=== PATIENT | male | born 1965 | race Caucasian/White ===

== ENCOUNTER → 2017-03-27 | Outpatient (CLI) | payer MEDICARE, BC ==
[2017-03-27 13:00] LABS: ALT 32 U/L (21-72); AST 18 U/L (17-59); Alkaline Phosphatase 74 U/L (38-126); Anion Gap 7 mmol/L; Blood Urea Nitrogen 14 mg/dL (9-20); Calcium 9.5 mg/dL (8.4-10.2); Carbon Dioxide 31 mmol/L (22-30); Chloride 101 mmol/L (98-107); Cholesterol 161 mg/dL (<200); Glucose 108 mg/dL (74-99); HDL Cholesterol 47 mg/dL (40-60); Non-African American GFR(MDRD) >60 (>60 ml/min/1.73 sqM); Potassium 5.1 mmol/L (3.5-5.1); Sodium 139 mmol/L (137-145); Total Bilirubin 0.5 mg/dL (0.2-1.3)
== END | disposition home or self-care (01) ==
LOC: LABWHC1 12:15
PROVIDERS: ATTEND Internal Medicine Interventional Cardiology
DX: E78.2 Mixed hyperlipidemia (principal)
CPT/HCPCS: 36415; 80053; 80061

== ENCOUNTER → 2017-11-21 | Outpatient (CLI) | payer MEDICARE, BC ==
[2017-11-21 10:41] LABS: HCT 39.8 % (39.0-53.0); HGB 13.8 gm/dL (13.0-17.5); MCH 34.6 pg (25.0-35.0); MCHC 34.5 g/dL (31.0-37.0); MCV 100.2 fL (80.0-100.0); Mean Platelet Volume 8.4; RBC 3.98 m/uL (4.30-5.90); RDW 13.8 % (11.5-15.5); WBC 4.2 k/uL (3.8-10.6)
[2017-11-21 11:04] LABS: ALT 29 U/L (21-72); AST 21 U/L (17-59); Albumin 3.9 g/dL (3.5-5.0); Alkaline Phosphatase 76 U/L (38-126); Anion Gap 6 mmol/L; Blood Urea Nitrogen 20 mg/dL (9-20); Calcium 9.1 mg/dL (8.4-10.2); Carbon Dioxide 29 mmol/L (22-30); Chloride 104 mmol/L (98-107); Cholesterol 134 mg/dL (<200); Glucose 107 mg/dL (74-99); HDL Cholesterol 34 mg/dL (40-60); LDL Cholesterol,Calculated 48 mg/dL (0-99); Potassium 4.2 mmol/L (3.5-5.1); Sodium 139 mmol/L (137-145); Total Bilirubin 0.4 mg/dL (0.2-1.3); Total Protein 6.4 g/dL (6.3-8.2); Triglycerides 262 mg/dL (<150)
[2017-11-21 11:21] LABS: Platelet Count 82 k/uL (150-450)
== END | disposition home or self-care (01) ==
LOC: LABWHC1 10:09
PROVIDERS: ATTEND Internal Medicine Interventional Cardiology
DX: E78.2 Mixed hyperlipidemia (principal); I25.10 Atherosclerotic heart disease of native coronary artery without angina pectoris
CPT/HCPCS: 36415; 80053; 80061; 85027

== ENCOUNTER → 2018-05-17 | Outpatient (CLI) | payer MEDICARE, BC ==
--- NOTE | 2018-05-17 21:42 | CONS ---
CONSULTATION DATE OF SERVICE: 05/17/2018 53-year-old gentleman, who has been [facility]evaluated in [facility] for obstructive sleep apnea-hypopnea syndrome. HISTORY OF PRESENT ILLNESS/SLEEP WAKE EVALUATION: Patient had been diagnosed with severe obstructive sleep apnea-hypopnea syndrome in 2008. At that time, apnea-hypopnea index 33.5 with oxygen desaturation to 88%. Since that time, patient is on treatment with CPAP and he is using equipment every night for the whole night. Last time his CPAP unit was changed several months ago. Since that time, patient developed some problems. He has significant leak from his mask and feels that pressure is too high for him. He lost weight from 262 pounds down to 230 pounds today comparing with the weight during his last titration. CPAP pressure on his CPAP unit 10 cm of water. Patient demonstrated 100% compliance with treatment. Apnea- hypopnea index is normal 1.0. Significant leak 18 L/minute. Usage again 100% of the night with average time 7.2 hours. SLEEP SCHEDULE: The patient's usual sleep schedule from 11 to 7:30 a.m. FALLING ASLEEP: No problems with falling asleep, although he has TV set in bedroom. DURING THE DAY/SLEEP WAVE EVALUATION: He may take a nap at noon time. [place] Sleepiness Scale is 7. PAST MEDICAL HISTORY: Positive for epilepsy, allergy, hypertension, coronary artery disease. PAST SURGICAL HISTORY: Stent insertions to coronary artery; surgery for aorta aneurysm, revision of part of aorta, back surgery, brain surgery for epilepsy. FAMILY HISTORY: Hypertension, heart problems, epilepsy, stroke, sleep apnea. REVIEW OF SYSTEMS: Difficulties with the usage of the machine secondary to leak and high pressure. PHYSICAL EXAM: gentleman without distress, BP 135/65, HR 56, RR 16, height 6 feet 1 inch, weight 230 pounds. Body mass index 30, temperature 98.2, oxygen saturation at room air 98%. Oropharynx extremely low position of soft palate. Mallampati IV. Neck is 17 inches in circumference. Neck Supple, no JVD. Thyroid is not palpable. LUNGS Clear to percussion and to auscultation. Good air exchange. No wheezing or rhonchi. HEART: She has a slight systolic murmur on aorta. ABDOMEN: Soft and nontender. Bowel sounds are present. No organomegaly appreciated. EXTREMITIES No clubbing or cyanosis. INTELLECTUAL PROPERTY PARALEGAL Awake, alert, and oriented X3. Cranial nerves 2 to 7 intact. There is no fasciculation or atrophy. noted. No focal deficits observed. IMPRESSION: 1. Obstructive sleep apnea-hypopnea syndrome. Low position of soft palate, wide neck. The patient demonstrated 100% compliance with CPAP treatment, benefitting from treatment. He feels the pressure is too high and there is a high leak from the mask. The patient is using full-face mask. 2. Overweight, borderline obesity, BMI 30. 3. Status post surgical treatment of aortic aneurysm. 4. Coronary artery disease, status post stent insertion. 5. Hypertension. 6. Status post back surgery. 7. History of epilepsy, status post several brain surgeries for epilepsy. PLAN: 1. Patient will continue to use CPAP equipment every night. I will adjust the pressure in the machine to the range of the possibility to use low pressure. 2. We will try to fit patient with a different style of mask. I would recommend DreamWear to try. 3. Sleep hygiene with regular time in bed for at least 8 hours. 4. No driving if feeling sleepiness. Thank you very much for allowing me to participate in management of your patient. Sincerely, Junito Arechiga MD, PhD, FAASM Diplomat of [place] [employer] [place] [employer] Worker of [facility] [place] MMODL / DILIPN: [id number] /
== END | disposition home or self-care (01) ==
LOC: SLEEP 16:30
PROVIDERS: ATTEND Internal Medicine
DX: G47.33 Obstructive sleep apnea (adult) (pediatric) (principal); E66.9 Obesity, unspecified; I25.10 Atherosclerotic heart disease of native coronary artery without angina pectoris; I10 Essential (primary) hypertension; Z86.69 Personal history of other diseases of the nervous system and sense organs; Z83.6 Family history of other diseases of the respiratory system; Z68.30 Body mass index [BMI] 30.0-30.9, adult; Z98.890 Other specified postprocedural states; Z95.5 Presence of coronary angioplasty implant and graft; Z99.89 Dependence on other enabling machines and devices
CPT/HCPCS: 99211

== ENCOUNTER → 2018-07-19 | Outpatient (CLI) | payer MEDICARE, BC ==
--- NOTE | 2018-07-19 20:28 | PN ---
PROGRESS NOTE DATE OF SERVICE: 07/19/2018 53-year-old gentleman who has been followed in [facility] for treatment of obstructive sleep apnea-hypopnea syndrome. During the previous visit, patient complains on too high pressure on in his machine and discomfort in his mask. Subsequently, regimen was changed and today's is his visit for followup, in 2 months after changes have been done. The patient is able to use his CPAP equipment every night, but sometimes feels a discomfort because he preferred to sleep on the side and on the belly and sometimes mask goes slightly off the face. I checked his CPAP unit. Pressure in the range from 4-10 cm of water. Most of the time, pressure is 9.5 cm of water. Usage is 100% of the night 30/30, more than 4 hours. Average 6.9 hours. Leak is high at 52 L/minute, but apnea-hypopnea index only 3.3, which is totally normal range. [place] Sleepiness Scale today is 3, which is normal. MEDICATIONS: Plavix, pantoprazole, Zyrtec, niacin, vitamin D3, aspirin and Aleve, Zanaflex, Tylenol, Lamictal, Tegretol XR, Zoloft, metoprolol, losartan, hydrochlorothiazide, Lipitor. PHYSICAL EXAM: Patient in no distress. BP 126/67, HR 78, RR 16, height 6 feet 1 inch, weight 228 pounds. Body mass index 30, temperature 98.3, oxygen saturation at room air 97%. Oropharynx showed tongue protrudes midline. Extremely low position of soft palate. Mallampati IV. Neck is 17 inches in circumference, slight systolic murmur on aorta. Neck: Supple, no JVD. Thyroid is not palpable. LUNGS: Clear to percussion and to auscultation. Good air exchange. No wheezing or rhonchi. HEART S1, S2 regular. No gallops, or rubs. Slight systolic murmur on aorta. ABDOMEN Soft and nontender. Bowel sounds are present. No organomegaly appreciated. EXTREMITIES No clubbing or cyanosis. DRUG SAFETY SPECIALIST Awake, alert, and oriented X3. Cranial nerves 2 to 7 intact. There is no fasciculation or atrophy. noted. No focal deficits observed. IMPRESSION: 1. Obstructive sleep apnea-hypopnea syndrome. The patient demonstrated 100% compliance with treatment. Normal apnea-hypopnea index on the machine, but still high leak from the mask, benefitting from treatment. 2. History of aortic aneurysm, status post surgical treatment. 3. Coronary artery disease, status post stent insertion. 4. Hypertension. 5. Status post leg surgery. 6. History of epilepsy. Status post several brain surgeries for epilepsy. PLAN: 1. I believe the patient may have benefits from fitting with DreamWear full-face under the nose mask. 2. The patient will continue to use CPAP equipment every night for the whole night. 3. Watching weight. 4. Sleep hygiene with regular time in bed for at least 8 hours. 5. No driving if feeling sleepiness. Thank you very much for allowing me to participate in management of your patient. Junito Arechiga MD, PhD, FAASM Diplomat of [employer] [employer] [employer] [facility] [place]LEY / ASH: [id number] /
== END ==
LOC: SLEEP 16:46
PROVIDERS: ATTEND Internal Medicine
DX: G47.33 Obstructive sleep apnea (adult) (pediatric) (principal); I10 Essential (primary) hypertension; I25.10 Atherosclerotic heart disease of native coronary artery without angina pectoris; G40.909 Epilepsy, unspecified, not intractable, without status epilepticus; Z99.89 Dependence on other enabling machines and devices; Z86.79 Personal history of other diseases of the circulatory system; Z98.890 Other specified postprocedural states; Z95.5 Presence of coronary angioplasty implant and graft; Z79.02 Long term (current) use of antithrombotics/antiplatelets; Z79.1 Long term (current) use of non-steroidal anti-inflammatories (NSAID); Z79.899 Other long term (current) drug therapy

== ENCOUNTER → 2019-02-28 | Outpatient (CLI) | payer MEDICARE, BC ==
[2019-02-28 20:57] LABS: Chol/HDL Ratio 3.16; LDL Cholesterol,Calculated 68.6 mg/dL (0.0-131.0); VLDL Calculation 28.4 mg/dL (5.00-40.00)
== END | disposition home or self-care (01) ==
LOC: LABWHC1 11:16
PROVIDERS: ATTEND Internal Medicine Interventional Cardiology
DX: E78.2 Mixed hyperlipidemia (principal)
CPT/HCPCS: 36415; 80061; 84450; 84460

== ENCOUNTER → 2019-12-05 | Outpatient (CLI) | payer MEDICARE ==
[2019-12-05 14:56] LABS: ALT 16 U/L (4-49); AST 21 U/L (17-59); African American GFR (CKD) >90 (>60 ml/min/1.73 sqM); Albumin 4.2 g/dL (3.5-5.0); Alkaline Phosphatase 74 U/L (38-126); Anion Gap 6 mmol/L; Blood Urea Nitrogen 17 mg/dL (9-20); Calcium 9.3 mg/dL (8.4-10.2); Carbon Dioxide 30 mmol/L (22-30); Chloride 98 mmol/L (98-107); Cholesterol 165 mg/dL (<200); Glucose 90 mg/dL (74-99); HDL Cholesterol 38 mg/dL (40-60); LDL Cholesterol,Calculated 76 mg/dL (0-99); Non-African American GFR(CKD) >90 (>60 ml/min/1.73 sqM); Potassium 4.6 mmol/L (3.5-5.1); Sodium 134 mmol/L (137-145); Total Bilirubin 0.5 mg/dL (0.2-1.3); Total Protein 6.8 g/dL (6.3-8.2); Triglycerides 253 mg/dL (<150)
--- NOTE | 2019-12-05 15:33 | BD ---
EXAMINATION TYPE: Axial Bone Density DATE OF EXAM: 12/05/2019 COMPARISON: NONE CLINICAL HISTORY: 54-year-old male other long-term/current drug therapy Height: 6 FT Weight: 230 FRAX RISK QUESTIONS: Alcohol (3 or more units per day): NO Family History (Parent hip fracture): NO Glucocorticoids (More than 3mos): NO (Ex: prednisone, prednisolone, methylprednisolone, dexamethasone, and hydrocortisone). History of Fracture in Adulthood: NO Secondary Osteoporosis: 1. Type 1 Diabetes: NO 2. Hyperthyroidism: NO 3. Menopause before 45: NA 4. Malnutrition: NO 5. Chronic liver disease: NO Rheumatoid Arthritis: NO Current Tobacco Use: YES RISK FACTORS HISTORY OF: Surgery to Spine/Hip(right/left)/Wrist (right/left): LUMBAR SURG When: ROUGHLY 15 YEARS AGO Family History of Osteoporosis: NO Active: YES Postmenopausal woman: NA Lost more than 2 inches in height since high school: YES MEDICATIONS: Additional Medications: TEGRETOL, CYCLOBENZAPRINE, LAMOTRIGINE, METOPROLOL, HYDROCHLORATE, LOSARTAN, PANTOPRAZOLE, LIPITOR, SERTRALINE, CALCIUM VIT D3 Additional History: EPILEPSY EXAM MEASUREMENTS: Bone mineral density about the R hip (g/cm2): 0.875 Bone mineral density about the L hip (g/cm2): 0.882 T Score values are as follows: -----R Neck: -1.2 -----L Neck: -1.1 -----R Total: -0.1 -----L Total: -0.4 BASELINE Bone mineral density about the L Wrist (g/cm2): 0.682 T Score values are as follows: -----Dist. R+U: -0.9 -----Prox. R+U: -1.0 -----Radius total: -1.0 BASELINE. IMPRESSION: Osteopenia (T Score between -2.5 and -1). There is slightly increased risk of fracture and the patient may be considered for treatment. Re-Screen 2-5 years. NOTE: T-SCORE=SD OF THE YOUNG ADULT MEAN.
== END | disposition home or self-care (01) ==
LOC: RADBDWWP 13:08
PROVIDERS: ATTEND Family Medicine
DX: Z13.820 Encounter for screening for osteoporosis (principal); M85.80 Other specified disorders of bone density and structure, unspecified site; Z79.899 Other long term (current) drug therapy; E78.2 Mixed hyperlipidemia
CPT/HCPCS: 77080; 80053; 80061

== ENCOUNTER 2020-06-18 07:12 | Day surgery (SDC) | payer MEDICARE ==
[2020-06-16 11:51] VITALS: BMI 30.8
[~2020-06-18 07:12] MED LIST: LIDOCAINE 1% (10MG/ML) FOR IV START INTRADERMA PRN
[2020-06-18 08:07] VITALS: RESP 16; TEMP 97
[2020-06-18] MEDS: LACTATED RINGERS 1,000 ML IV SCH ×2 (08:16→08:33)
[2020-06-18] MEDS ORDERED: PROPOFOL 10 MG/ML 20 ML VIAL IV ONE (08:33)
[2020-06-18] MEDS ORDERED: LIDOCAINE 1% INJ 10MG/ML (20 ML MDV) ONE (08:33)
--- NOTE | 2020-06-18 09:07 | P.PCN ---
Date of Procedure: 06/18/20 Description of Procedure: BRIEF HISTORY: Patient is a 55-year-old male presenting for outpatient colonoscopy for significant for malignant neoplasm of the colon. No prior colonoscopy. No change in bowel habits. His report colon cancer in his mother. PROCEDURE PERFORMED: Colonoscopy with polypectomy. PREOPERATIVE DIAGNOSIS: Screening for malignant neoplasm of the colon, no prior colonoscopies, family history of colon cancer in the patient's mother. ESTIMATED BLOOD LOSS: Minimal. IV sedation per Anesthesia. PROCEDURE: After informed consent was obtained, the patient, was brought into the endoscopy unit. IV sedation was administered by Anesthesia under continuous monitoring. Digital rectal examination was normal. Initially the Olympus CF-190 flexible video colonoscope was then inserted in the rectum, gradually advanced into the cecum without any difficulty. Careful examination was performed as the scope was gradually being withdrawn. Ileocecal valve and the appendiceal orifice were visualized and appeared normal. Prep was excellent. Mucosa of the cecum, ascending colon, transverse colon, descending colon, sigmoid colon, and rectum appeared normal. Cold snare polypectomy of polyps measuring 4 mm in the cecum, 4 mm in the ascending colon and 3 mm in the descending colon. Cold forcep biopsy of diminutive polyps measuring 1-2 mm in the transverse colon 2 in the rectum 1. Retroflexion was performed in the rectum and no lesions were seen. The patient tolerated the procedure well. IMPRESSION: Cold snare polypectomy of polyps from the cecum, ascending colon and descending colon. 3 diminutive polyps removed with cold forcep polypectomy from the transverse col on 2 and rectum. RECOMMENDATIONS: Findings of this examination were discussed with the patient and his family. Okay to resume diet. Okay to resume medications. Await pathology from polypectomy. Recommend repeat colonoscopy in 3 years for history of colon polyps and family history of colon cancer.
[2020-06-18 09:28] VITALS: BP 133/70; PULSE 55
== END 2020-06-18 09:40 ==
LOC: ORWHC2ENDO 07:12
PROVIDERS: ATTEND Internal Medicine
DX: Z12.11 Encounter for screening for malignant neoplasm of colon (principal); D12.0 Benign neoplasm of cecum; D12.2 Benign neoplasm of ascending colon; D12.3 Benign neoplasm of transverse colon; D12.4 Benign neoplasm of descending colon; D12.8 Benign neoplasm of rectum; Z80.0 Family history of malignant neoplasm of digestive organs; I25.10 Atherosclerotic heart disease of native coronary artery without angina pectoris; E78.5 Hyperlipidemia, unspecified; G47.33 Obstructive sleep apnea (adult) (pediatric); K21.9 Gastro-esophageal reflux disease without esophagitis; F17.210 Nicotine dependence, cigarettes, uncomplicated; Z79.899 Other long term (current) drug therapy; Z95.5 Presence of coronary angioplasty implant and graft
CPT/HCPCS: 88305; 45380; 45385; J2001; J2704

== ENCOUNTER → 2022-01-27 | Outpatient (CLI) | payer MEDICARE ==
[2022-01-27 14:29] LABS: HCT 45.2 % (39.6-50.0); HGB 15.5 g/dL (13.0-17.0); MCHC 34.3 g/dL (32.0-37.0); MCV 99.1 fL (80.0-97.0); Mean Platelet Volume 11.2 fL (9.5-12.2); NRBC Per 100 WBC 0 /100 WBCS (0.0-0.0); Platelet Count 100 X 10*3/uL (140-440); RBC 4.56 X 10*6/uL (4.40-5.60); RDW 14.3 % (11.5-14.5); WBC 3.95 X 10*3/uL (4.50-10.00)
[2022-01-27 17:17] LABS: ALT 12 U/L (10-49); AST 16 U/L (14-35); African American GFR (CKD) 95.7 (60.0-200.0); Albumin 4.4 g/dL (3.8-4.9); Albumin/Globulin Ratio 1.47 (1.60-3.17); Alkaline Phosphatase 83 U/L (41-126); Blood Urea Nitrogen 11.7 mg/dL (9.0-27.0); Calcium 9.8 mg/dL (8.7-10.3); Carbon Dioxide 27.7 mmol/L (20.0-27.5); Chloride 93 mmol/L (96-109); Chol/HDL Ratio 3.28 Ratio; Glucose 110 mg/dL (70-110); LDL Cholesterol,Calculated 71.8 mg/dL (0.0-131.0); Non-African American GFR(CKD) 82.6 (60.0-200.0); Sodium 131 mmol/L (135-145); Total Protein 7.4 g/dL (6.2-8.2)
== END | disposition home or self-care (01) ==
LOC: LABWHC1 09:01
PROVIDERS: ATTEND Internal Medicine Interventional Cardiology
DX: I10 Essential (primary) hypertension (principal); E78.2 Mixed hyperlipidemia; I48.91 Unspecified atrial fibrillation
CPT/HCPCS: 36415; 80053; 80061; 84443; 85027

== ENCOUNTER 2022-03-29 05:52 | Day surgery (SDC) | payer MEDICARE ==
[2022-03-24 15:46] VITALS: BMI 31.6
[~2022-03-29 05:52] MED LIST changes: -LIDOCAINE 1% (10MG/ML) FOR IV START INTRADERMA PRN; +SODIUM CHLORIDE 0.9% 1,000 ML IV SCH
[2022-03-29] MEDS ORDERED: SODIUM CHLORIDE 0.9% 500 ML 500 ML IV ONE (06:10)
[2022-03-29 06:37] VITALS: RESP 16; TEMP 98.5
[2022-03-29] MEDS ORDERED: PROPOFOL 10 MG/ML 20 ML VIAL IV ONE (07:15)
[2022-03-29] MEDS ORDERED: LIDOCAINE 2% INJ 20 MG/ML (2 ML VIAL) ONE (07:15)
[2022-03-29 07:18] LABS: African American GFR (CKD) >90 (>60 ml/min/1.73 sqM); Anion Gap 4 mmol/L; Blood Urea Nitrogen 17 mg/dL (9-20); Calcium 8.8 mg/dL (8.4-10.2); Carbon Dioxide 31 mmol/L (22-30); Chloride 103 mmol/L (98-107); Glucose 111 mg/dL (74-99); Non-African American GFR(CKD) >90 (>60 ml/min/1.73 sqM); Potassium 4.3 mmol/L (3.5-5.1); Sodium 138 mmol/L (137-145)
[2022-03-29] MEDS ORDERED: BENZOCAINE SPRAY 1 CAN TOPICAL ONE ×2 (07:19→07:26)
[2022-03-29] MEDS ORDERED: CYCLOBENZAPRINE 5 MG TAB PO PRN (07:40)
[2022-03-29] MEDS ORDERED: SODIUM CHLORIDE 0.9% 1,000 ML IV SCH (07:45)
--- NOTE | 2022-03-29 07:45 | P.PCN ---
Date of Procedure: 03/29/22 Description of Procedure: Indication: Atrial fibrillation Procedure Description: After explaining the procedure to the patient, it's risk and complications, blood pressure, heart rate and O2 saturation were monitored. The throat was sprayed with Cetacaine. Patient received sedation per anesthesia department. The probe was introduced into the esophagus without difficulty. Images were obtained. Following that, the probe was removed. There was no immediate complication. Findings: Left atrial size is mildly dilated, left atrial appendage is normal. The aortic valve is a bicuspid valve with preserved opening. Mitral valve appears to be normal. The ventricle systolic function is borderline normal with ejection fraction of 50-55%. Tricuspid valve is normal. Descending thoracic aorta revealed atherosclerotic changes of mild to moderate degree. No pericardial effusion. Contrast bubble study with no shunting across the intra-atrial septum. Doppler: Pulse wave and color Doppler were obtained, obtained and showed mild mitral and tricuspid regurgitation is moderate to severe aortic regurgitation. There was no shunting across the intra-atrial septum. Conclusion: 1. Mildly dilated left atrium with normal appearance of the left atrial appendage 2. Left ventricle systolic function borderline normal 3. Bicuspid aortic valve with moderate to severe aortic regurgitation 4. Mild mitral and tricuspid regurgitation 5. Mild atherosclerotic changes of the descending thoracic aorta 6. No pericardial effusion Cardioversion: After performing a MARCELLE and obtaining sedated state synchronized biphasic cardioversion using 150 J was unsuccessful in restoring sinus mechanism, an attempt with 200 J was successful in restoring sinus mechanism. There was no immediate complications.
[2022-03-29] MEDS ORDERED: lamoTRIgine 100 MG TAB PO SCH (09:00)
[2022-03-29] MEDS ORDERED: RIVAROXABAN 20 MG TAB PO SCH (09:00)
[2022-03-29] MEDS ORDERED: carBAMazepine 400 MG TAB.ER.12H PO SCH (09:00)
[2022-03-29] MEDS ORDERED: NON FORMULARY DRUG (Calcium Carbonate [Calcium] 600 MG Tablet) PO SCH (09:00)
[2022-03-29 09:15] VITALS: BP 128/72; PULSE 56
[2022-03-29] MEDS ORDERED: METOPROLOL TARTRATE 50 MG TAB PO SCH (21:00)
[2022-03-29] MEDS ORDERED: SERTRALINE 50 MG TAB PO SCH (21:00)
[2022-03-30] MEDS ORDERED: PANTOPRAZOLE 40 MG TABLET PO SCH (07:30)
[2022-03-30] MEDS ORDERED: NIACIN TR 500 MG CAPLET PO SCH (09:00)
[2022-03-30] MEDS ORDERED: LOSARTAN 50 MG TAB PO SCH (09:00)
[2022-03-30] MEDS ORDERED: ASPIRIN 81 MG PO SCH (09:00)
[2022-03-30] MEDS ORDERED: hydroCHLOROthiazide 12.5 MG CAP PO SCH (09:00)
== END 2022-03-29 09:17 | disposition home or self-care (01) ==
LOC: CATHCVL 05:52
PROVIDERS: ATTEND Internal Medicine Interventional Cardiology
DX: I48.91 Unspecified atrial fibrillation (principal); I08.3 Combined rheumatic disorders of mitral, aortic and tricuspid valves; I70.90 Unspecified atherosclerosis; I25.10 Atherosclerotic heart disease of native coronary artery without angina pectoris; I10 Essential (primary) hypertension; E78.5 Hyperlipidemia, unspecified; F17.210 Nicotine dependence, cigarettes, uncomplicated; I73.9 Peripheral vascular disease, unspecified; Z79.82 Long term (current) use of aspirin; Z79.899 Other long term (current) drug therapy
CPT/HCPCS: 93312; 93320; 93325; 92960; 80048; J2704; J2001

== ENCOUNTER → 2022-07-07 | Outpatient (CLI) | payer MEDICARE ==
[2022-07-08 00:09] LABS: African American GFR (CKD) 113.3 (60.0-200.0); Anion Gap 9.5 mmol/L (10.00-18.00); Blood Urea Nitrogen 13.8 mg/dL (9.0-27.0); Carbon Dioxide 29.5 mmol/L (20.0-27.5); Non-African American GFR(CKD) 97.8 (60.0-200.0); Potassium 4.5 mmol/L (3.5-5.5)
[2022-07-08 02:42] LABS: HCT 44.9 % (39.6-50.0); HGB 15.2 g/dL (13.0-17.0); MCH 33.9 pg (27.0-32.0); MCHC 33.9 g/dL (32.0-37.0); MCV 100.2 fL (80.0-97.0); NRBC Per 100 WBC 0 /100 WBCS (0.0-0.0); Platelet Count 94 X 10*3/uL (140-440); RBC 4.48 X 10*6/uL (4.40-5.60); RDW 13.7 % (11.5-14.5); WBC 4.91 X 10*3/uL (4.50-10.00)
[2022-07-08 02:43] LABS: Macrocytosis (M) 2+
== END | disposition home or self-care (01) ==
LOC: LABPAT 16:15
PROVIDERS: ATTEND Internal Medicine Clinical Cardiac Electrophysiology
DX: Z01.812 Encounter for preprocedural laboratory examination (principal); I48.0 Paroxysmal atrial fibrillation
CPT/HCPCS: 80051; 82565; 84520; 85027

== ENCOUNTER 2022-07-11 12:01 | Day surgery (SDC) | payer MEDICARE ==
[~2022-07-11 12:01] MED LIST changes: +HYDROmorphone 0.5 MG/0.5 ML SYRINGE IVP PRN; +MIDAZOLAM 2 MG/2 ML VIAL IV PRN; +ONDANSETRON 4 MG/2 ML VIAL IVP ONE; -SODIUM CHLORIDE 0.9% 1,000 ML IV SCH
[2022-07-11] MEDS ORDERED: SODIUM CHLORIDE 0.9% 1,000 ML IV ONE ×2 (12:12→16:08)
[2022-07-11] MEDS ORDERED: LIDOCAINE 1% INJ 10MG/ML (20 ML MDV) ONE (13:01)
[2022-07-11] MEDS ORDERED: LIDOCAINE 2% INJ 20 MG/ML (2 ML VIAL) ONE (13:53)
[2022-07-11] MEDS ORDERED: ePHEDrine 50 MG/ML 1 ML VIAL ONE (13:53)
[2022-07-11] MEDS ORDERED: ROCURONIUM 10 MG/ML (5 ML VIAL) IV ONE (13:53)
[2022-07-11] MEDS ORDERED: PROPOFOL 10 MG/ML 20 ML VIAL IV ONE (13:53)
[2022-07-11] MEDS ORDERED: fentaNYL (PF) 50 MCG/ML 2 ML AMP ONE (13:53)
[2022-07-11] MEDS ORDERED: ATROPINE SULFATE 0.1 MG/ML 10ML SYRINGE ONE (13:53)
[2022-07-11] MEDS ORDERED: HEPARIN SODIUM,PORCINE 5,000 UNIT/ML 1 ML VIAL ONE (13:53)
[2022-07-11] MEDS ORDERED: HEPARIN SODIUM,PORCINE 10,000 UNIT/ML 1 ML VIAL ONE (13:53)
[2022-07-11] MEDS ORDERED: SUCCINYLCHOLINE CHLORIDE 200 MG/10 ML VIAL IV ONE (13:53)
[2022-07-11] MEDS ORDERED: MIDAZOLAM 2 MG/2 ML VIAL ONE (13:53)
[2022-07-11] MEDS ORDERED: HEPARIN SODIUM (1,000 UNIT/ML) 1,000 UNIT in SODIUM CHLORIDE 0.9% 1,000 ML IRRIGATION ONE (14:11)
--- NOTE | 2022-07-11 14:25 | P.HPCAR ---
History of Present Illness This is Dr. Rae dictating an H/P on this patient The patient was interviewed and examined IMPRESSION / ASSESSMENT: Persistent atrial fibrillation, symptomatic with tiredness fatigue, rate controlled Bicuspid aortic valve Ascending aortic aneurysm Multivessel coronary artery disease status post stenting 3+ aortic regurgitation Ejection fraction 50% Hypertension History of seizure disorder PLAN: Proceed with AF ablation with PVI and linear ablation for left atrium HPI Patient is complaining of palpitations and tiredness fatigue Denies any fever chills cough expectoration Denies any undue shortness of breath No angina no chest pain No syncope recently ROS: No fever chills or rigors, no cough, phlegm or expectoration, no nausea, vomiting or diarrhea, no hematuria, dysuria, no musculoskeletal complaints, no strokes or seizures, no skin lesions. EXAMINATION: 147 70 mmHg, pulse rate in the 80s Breath sounds are clear no rhonchi no crackles Heart sounds irregular no murmurs Abdomen soft No lower extremity edema No orthopnea No JVD REVIEW OF LABS, ECG & MEDICAL DATA Metoprolol 50 mg twice daily, hydrochlorothiazide, Xarelto 20 mg daily, losartan and aspirin 81 mg daily Physical Exam Vitals: Vital Signs Temp Pulse Resp BP Pulse Ox 07/11/22 12:33 98 F 85 16 147/70 95 Intake and Output 07/10/22 07/11/22 07/11/22 22:59 06:59 14:59 Intake Total 100 Balance 100 Intake: IV 100 Other: Weight 110.9 kg Past Medical History Past Medical History: Atrial Fibrillation, Coronary Artery Disease (CAD), GERD/Reflux, Hypertension, Musculoskeletal Disorder, Seizure Disorder, Sleep Apnea/CPAP/BIPAP Additional Past Medical History / Comment(s): epilespy-last seizure 10 yrs ago, aortic valve disease, heart murmur, uses cpap, see Dr. Rae H & P History of Any Multi-Drug Resistant Organisms: None Reported Past Surgical History: Appendectomy, Back Surgery, Heart Catheterization With Stent, Orthopedic Surgery Additional Past Surgical History / Comment(s): total 3 cardiac stents, brain surgery x 2 for seizures, aortic aneursym repair, rt knee arthroscopy, 2nd rt knee open surgery with 2 screws, mult fingers surgery for trigger finger, rt wrist surgery for torn tendon. back surgery x 2 Past Anesthesia/Blood Transfusion Reactions: No Reported Reaction Date of Last Stent Placement:: 03/22/16 Smoking Status: Current every day smoker - Past Family History Mother Family Medical History: Cancer Additional Family Medical History / Comment(s): Mother had colon cancer. Father Family Medical History: CVA/TIA, Hypertension Sister(s) Family Medical History: Cancer Physical Examination Vital Signs Temp Pulse Resp BP Pulse Ox 07/11/22 12:33 98 F 85 16 147/70 95 Intake and Output 07/10/22 07/11/22 07/11/22 22:59 06:59 14:59 Intake Total 100 Balance 100 Intake: IV 100 Other: Weight 110.9 kg Results Current Medications Generic Name Dose Route Start Last Admin Trade Name Freq PRN Reason Stop Dose Admin Hydromorphone HCl 0.5 mg 07/11/22 07:00 Hydromorphone 0.5 Mg/0.5 Ml Syringe IVP 07/11/22 23:00 Q5M PRN Phase 1 or 2 - Pain Control Sodium Chloride 1,000 mls @ 20 mls/hr 07/11/22 06:08 Saline 0.9% IV 08/10/22 06:09 .Q24H SINCERE Lactated Ringer's 1,000 mls @ 20 mls/hr 07/11/22 06:08 Lactated Ringers IV 08/10/22 06:09 .Q24H SINCERE Midazolam HCl 2 mg 07/11/22 06:08 Midazolam 2 Mg/2 Ml Vial IV 07/12/22 06:09 ONCE PRN Pre-Op Anxiety Intake and Output 07/10/22 07/11/22 07/11/22 22:59 06:59 14:59 Intake Total 100 Balance 100 Intake: IV 100 Other: Weight 110.9 kg Patient Weight 07/12/22 06:59 Weight 110.9 kg
[2022-07-11] MEDS ORDERED: LIDOCAINE 1% INJ 10MG/ML (20 ML MDV) SQ ONE (14:40)
[2022-07-11] MEDS ORDERED: HEPARIN SOD,PORK IN 0.45% NACL 25,000 UNIT in 0.45% NACL 1 250ML.BAG IV ONE (16:41)
[2022-07-11] MEDS ORDERED: IOPAMIDOL-370 100ML BTL INJ ONE (16:45)
--- NOTE | 2022-07-11 17:40 | P.EPPROC ---
- EP Procedure Note Electrophysiology Procedure Note: PROCEDURE A. fib ablation DIAGNOSIS Atrial fibrillation, symptomatic, refractory to therapy. Symptomatic despite adequate rate control of ventricular response RESULT No left atrial appendage mass seen on intracardiac echo, mild thickening of the pericardium, status post coronary artery bypass grafting Successful A. fib ablation/pulmonary vein isolation of all veins using cryo- ablation Complete entrance block in all 4 veins confirmed Ablation of the dahlia in between the left superior and left inferior pulmonary veins, successful Ablation of the long left atrial roof in between the superior veins, successful No evidence for phrenic nerve injury Esophageal deflection YES Electrical cardioversion with a synchronized shock across the chest YES PROCEDURE DETAILS Written informed consent prior to procedure. Patient brought to the EP lab. General anesthesia given. Heparin administered. A city maintained above 300 seconds Both groins prepped and draped per protocol and venous sheaths placed. Esophagus intubated, circa catheter for temperature monitoring an endoscope for possible esophageal deflection. Phrenic nerve monitoring performed. Esophageal temperature monitoring performed. Esophageal deflection performed if circa catheter overlapping with the balloon or circa temperature less than 27.5C Intracardiac echocardiography performed. Pericardium evaluated. Left atrial appendage evaluated. Left atrium evaluated along with pulmonary veins Transseptal catheterization performed under fluoroscopic guidance and intracardiac echo guidance Cryoablation sheath exchanged, balloon catheter along with achieve catheter placed in the left atrium. Pulmonary veins isolated in the following sequence: Left superior pulmonary vein followed by left inferior pulmonary vein, followed by right inferior pulmonary vein and lastly right superior pulmonary vein. Phrenic nerve stimulation along with capture thresholds within the SVC and right superior pulmonary vein to identify the phrenic nerve proximity to the cryo- balloon. Pulmonary veins isolated and confirmed with entrance and exit block. Phrenic nerve integrity confirmed at the end of the procedure Linear Ablation of the left atrial roof performed with sequential lesions from the left superior to the right superior pulmonary veins. Ablation of the electrograms confirmed Ablation of the left atrial septum performed with cannulation of the superior branch of the right inferior to achieve ablation of the broad dahlia between LS and LIPV Ablation of electrograms confirmed Electrical cardioversion performed for persistence of atrial fibrillation despite successful ablation. Diagnostic catheters for the high right atrium, His bundle, coronary sinus placed. LA and RA pressures recorded RA pressure: 20/14/17 LA pressure: 29/7/17 Diagnostic EP study with coronary sinus pacing and recording Baseline measurements: Patient was in A. fib and started study. He underwent electrical cardioversion for performance of EP study QRS 160 ms, QT interval 464 ms AH 106 ms and HV interval 43 ms Sinus node recovery times at 600, 500, and 400 ms were 1015, 1003 and 1000 ms respectively Dinora response to Parahisian pacing No evidence for slow pathway conduction VA Wenckebach block 450 ms AV node Wenckebach block 420 ms Venous sheaths were removed and hemostasis assured with a closure device. Patient extubated and transferred to recovery Increase procedural time During ablation multiple attempts had to be made to move the esophagus a safe distance of the from the pulmonary vein and from the left atrial roof during cryoablation, to avoid excessive thermal cooling of the esophagus This took extra time and effort to keep the esophagus a safe distance away from the cryoablation balloon. PROCEDURES PERFORMED Diagnostic EP study CS pacing and recording Left and right transseptal catheterization Catheter the mapping of the tachycardia Intracardiac echocardiography Pulmonary vein isolation with transseptal and comprehensive EPS, [id number] Extended procedure duration Left atrial roof line, +[id number] Linear ablation, left atrium, +[id number] Electrical cardioversion with a synchronized shock across the chest [id number]
--- NOTE | 2022-07-11 17:41 | P.PRLE ---
RE: Parker Roque Dear Shanna Roque underwent an A. fib ablation for symptomatic persistent atrial fibrillation He underwent successful isolation of the pulmonary veins, the atrial tissue between the left superior and left inferior pulmonary veins and the left atrial roof line successfully However he did have to be cardioverted the end of the procedure He will continue anticoagulation as before and will follow up with you and Dr. Burkett Thank you for entrusting me with the care of the patient Warm regards Sincerely Prosper Rae
[2022-07-11] MEDS ORDERED: CYCLOBENZAPRINE 5 MG TAB PO PRN (17:42)
[2022-07-11] MEDS ORDERED: ACETAMINOPHEN TAB 325 MG TAB PO PRN (17:44)
[2022-07-11] MEDS ORDERED: ACETAMINOPHEN IV (For NPO) 1,000 MG in EMPTY BAG 1 BAG IVPB ONE (17:44)
[2022-07-11] MEDS: LACTATED RINGERS 1,000 ML IV SCH (18:25)
[2022-07-11] MEDS: SODIUM CHLORIDE 0.9% 1,000 ML IV SCH (18:25)
[2022-07-11] MEDS: CARBAMAZEPINE PO SCH (20:58)
[2022-07-11] MEDS: [UNRECOGNIZED DRUG - OTHER] PO SCH (20:58)
[2022-07-11] MEDS: lamoTRIgine 100 MG TAB PO SCH (20:58)
[2022-07-11 22:09] VITALS: RESP 18
[2022-07-12] MEDS: SODIUM CHLORIDE 0.9% 1,000 ML IV SCH (05:50)
[2022-07-12] MEDS: LACTATED RINGERS 1,000 ML IV SCH (05:50)
[2022-07-12 07:24] VITALS: BP 134/75; PULSE 65; TEMP 98
[2022-07-12] MEDS ORDERED: PANTOPRAZOLE 40 MG TABLET PO SCH (07:30)
--- NOTE | 2022-07-12 07:59 | DS ---
DISCHARGE SUMMARY HOSPITAL COURSE: Mr. Roque has persistent symptomatic atrial fibrillation despite adequate rate control. Yesterday, he underwent an atrial fibrillation ablation successfully. He is doing well this morning. He has no chest discomfort, dizziness, lightheadedness. No pleuritic pain. No sore throat. Mild soreness in the right groin, but there is no hematoma. His groins are bruised, but without any hematoma at all. Heart sounds are normal. Normal S1, normal S2. Soft, diastolic murmur. Lungs are clear. No rhonchi, no crackles. Breath sounds are normal. No JVD. He is able to lie supine. He has been ambulating around in the room and to the bathroom. Vitals are stable. Heart rates are in the 60s and 70s, sinus mechanism. First-degree AV block. A 12-lead EKG shows a first-degree AV block with heart rate around 65 beats per minute. IMPRESSION: 1. Persistent atrial fibrillation, symptomatic despite adequate rate control. 2. Successful pulmonary vein isolation, ablation of atrial tissue between the left superior and left inferior pulmonary veins and ablation of the left atrial roof with ablation of all electrograms. A very thick interatrial septum with an extremely small foci ovalis that was difficult to cross. However, the sheath was placed successfully, crossed into the left atrium and successful ablation was performed. The patient did require electrical cardioversion at the end of the procedure. Hypertension. Coronary artery disease, status post coronary artery bypass grafting. Moderate to severe eccentric aortic regurgitation. Suggest ambulate in the hallways today and discharge home by late morning if hemodynamically stable. Continue Xarelto. Reduce the dose of metoprolol to 25 mg twice daily. Continue all other medications. Follow up with Dr. Morris in 7 to 10 days. Postop instructions were given to the patient. Ultimately, the prognosis for atrial fibrillation depending upon extent and progression of coronary artery disease as well as progression of aortic regurgitation. MMODL / IJN: [id number] /
[2022-07-12] MEDS ORDERED: ASPIRIN 81 MG PO SCH (09:00)
[2022-07-12] MEDS ORDERED: hydroCHLOROthiazide 25 MG TAB PO SCH (09:00)
[2022-07-12] MEDS ORDERED: RIVAROXABAN 20 MG TAB PO SCH (09:00)
[2022-07-12] MEDS ORDERED: LOSARTAN 50 MG TAB PO SCH (09:00)
[2022-07-12] MEDS: CARBAMAZEPINE PO SCH (09:05)
[2022-07-12] MEDS: [UNRECOGNIZED DRUG - OTHER] PO SCH (09:05)
[2022-07-12] MEDS: lamoTRIgine 100 MG TAB PO SCH (09:05)
== END 2022-07-12 11:11 | disposition home or self-care (01) ==
LOC: CATHEP 12:01 → 6NMEDSUR 17:05 → CATHEP 07-12 11:11
PROVIDERS: ATTEND Internal Medicine Clinical Cardiac Electrophysiology
DX: I48.19 Other persistent atrial fibrillation (principal); I25.10 Atherosclerotic heart disease of native coronary artery without angina pectoris; Z95.1 Presence of aortocoronary bypass graft; Z95.5 Presence of coronary angioplasty implant and graft; I44.1 Atrioventricular block, second degree; I71.21 Aneurysm of the ascending aorta, without rupture; I10 Essential (primary) hypertension; I35.1 Nonrheumatic aortic (valve) insufficiency; Z79.01 Long term (current) use of anticoagulants; K21.9 Gastro-esophageal reflux disease without esophagitis; G40.909 Epilepsy, unspecified, not intractable, without status epilepticus; G47.30 Sleep apnea, unspecified; Z99.89 Dependence on other enabling machines and devices; F17.200 Nicotine dependence, unspecified, uncomplicated; Z80.0 Family history of malignant neoplasm of digestive organs; Z82.49 Family history of ischemic heart disease and other diseases of the circulatory system; Z79.899 Other long term (current) drug therapy; Z98.890 Other specified postprocedural states
CPT/HCPCS: 92960; 93656; 93657; C1894 ×2; C1769 ×4; C1760; C1730 ×2; C1759; C1893; C1733; C1766; J2250; J0330; J1644 ×3; J0690; J2001 ×2; J0461; J3010; J2704; Q9967

== ENCOUNTER → 2023-02-02 | Outpatient (CLI) | payer MEDICARE ==
--- NOTE | 2023-02-02 17:27 | P.SLEEP ---
History of Present Illness DATE:02/02/2023 CONSULTATION/NEW PATIENT EVALUATION HISTORY OF PRESENT ILLNESS/SLEEP-WAKE EVALUATION: 57 year old gentleman had been evaluated in the sleep center for obstructive sleep apnea hypopnea syndrome. I so patient to more than 3 years ago in the 07/19/2018. Patient continued to use his CPAP equipment every night. Recently his CPAP unit became noisy and she has difficulties with the usage. I checked CPAP unit. Range of the pressure for to 10 cm of water, usage is 100% of nights with average 7.8 hours per night. Leak is 28 L/m which is slightly increased. Apnea-hypopnea index is 0.7 which is in normal range. SLEEP SCHEDULE: Usually sleep schedule from 1112 until 78 AM. FALLING ASLEEP: No problems with falling asleep. DURING SLEEP: Occasional snoring with CPAP. Patient may wake up from sleep up to 4 times. No nocturia. No history of hypnogogical hallucinations, sleep paralysis, or cataplexy. DURING THE DAY/WAKE STATE: In the morning patient may wake up tired, has problems with memory and depression. [place] sleepiness scale is 3. Patient may take 1 nap around 2-3 PM. PAST MEDICAL HISTORY: Reactive disease, hypertension, hours he can aneurysm, epilepsy in the past. PAST SURGICAL HISTORY: Status post surgical treatment for to, aneurysm, stent insertion for coronary artery, cardiac ablation for atrial fibrillation. MEDICATIONS:. Metoprolol 100 mg twice a day, metoprolol 50 mg twice a day, losartan/hydrochlorothiazide, atorvastatin 20 mg once a day, pantoprazole 40 mg once a day, sertraline 50 mg once a day, seclude benzopyrene 5 mg as needed, xarelto 20 mg once a day. SOCIAL HISTORY: Positive history of smoking for 30 pack years, continue to smoke, no recent alcohol consumption. FAMILY HISTORY: Hypertension, stroke, sleep apnea. REVIEW OF SYSTEMS: Awakenings from sleep. No fevers. No double vision. No recent chest pain. No shortness of breath. No abdominal pain. No bleeding episodes. No blood in urine. No seizure episodes. PHYSICAL EXAMINATION: GENERAL: A pleasant patient without any distress. VITAL SIGNS: BP 161/84, HR 63, RR 16, weight 229.4 pounds, height 6 foot 1 inches, body mass index 31. HEENT: PERRLA, EOMI. Evaluation of oropharynx showed tongue protrudes midline, low position of soft palate Mallampati 4. NECK: Supple. No JVD. Thyroid is not palpable. 18.5 inches in circumference. LUNGS: Clear to percussion and to auscultation. Good air exchange. No wheezing or rhonchi. HEART: S1, S2 regular. No murmurs, gallops or rubs. ABDOMEN: Soft and nontender. Bowel sounds are present. No organomegaly appreciated. EXTREMITIES: No clubbing or cyanosis. COAGULATION OPERATOR: Awake, alert, and oriented x3. Cranial nerves 2 to 7 intact. There is no fasciculation or atrophy noted. No focal deficits observed. ASSESSMENT: 1. Obstructive sleep apnea hypopnea syndrome, patient continued to use his CPAP equipment every night for the whole night, normal respiration on CPAP. Occasional snoring on CPAP. CPAP unit is old and noisy. 2. Coronary artery disease, status post stent insertion. 3. History of atrial fibrillation status post cardiac ablation. 4. Status post surgical treatment for our take aneurysm. 5 hypertension. 6 . History of epilepsy, status post brain surgery for epilepsy, no recent episodes. 7. Smokier for 30 pack years, continue to smoke. PLAN: 1. Prescription to replace CPAP unit. Patient should continue to use CPAP equipment every night for the whole night. 2. I changed parameters of CPAP up to the level of 413 centimeters of water 3. Preferable position during sleep on the side. 4. No driving if patient feels any sleepiness. Patient is aware of civil and criminal liability for unsafe driving. 5. Sleep hygiene with regular sleep time for at least 7.5-8 hours. 6. Watching weight. 7. Follow-up visit in 2 months after patient will get new CPAP unit. Sincerely, Junito Arechiga MD, PhD, FAASM. Diplomat of [place] [employer], Sleep Medicine Board by [place] [employer] [place] [employer] Tobacco Sprayer of [facility] [place] Past Medical History Past Medical History: Atrial Fibrillation, Coronary Artery Disease (CAD), GERD/Reflux, Hypertension, Musculoskeletal Disorder, Seizure Disorder, Sleep Apnea/CPAP/BIPAP Additional Past Medical History / Comment(s): epilespy-last seizure 10 yrs ago, aortic valve disease, heart murmur, uses cpap, see Dr. Rae H & P History of Any Multi-Drug Resistant Organisms: None Reported Past Surgical History: Appendectomy, Back Surgery, Heart Catheterization With Stent, Orthopedic Surgery Additional Past Surgical History / Comment(s): total 3 cardiac stents, brain surgery x 2 for seizures, aortic aneursym repair, rt knee arthroscopy, 2nd rt knee open surgery with 2 screws, mult fingers surgery for trigger finger, rt wrist surgery for torn tendon. back surgery x 2 Past Anesthesia/Blood Transfusion Reactions: No Reported Reaction Date of Last Stent Placement:: 03/22/16 Past Psychological History: No Psychological Hx Reported Additional Psychological History / Comment(s): some loss of memory after brain surgeries Smoking Status: Current every day smoker Past Alcohol Use History: None Reported Additional Past Alcohol Use History / Comment(s): smokes 1 ppd since age 14 yrs (1979). Past Drug Use History: None Reported - Past Family History Mother Family Medical History: Cancer Additional Family Medical History / Comment(s): Mother had colon cancer. Father Family Medical History: CVA/TIA, Hypertension Sister(s) Family Medical History: Cancer Medications and Allergies Home Medications Medication Instructions Recorded Confirmed Type Cetirizine HCl [Zyrtec] 10 mg PO HS 02/16/16 07/11/22 History Cholecalciferol [Vitamin D3 (25 1,000 unit PO DAILY 02/16/16 07/07/22 History Mcg = 1000 Iu)] Niacin 500 mg PO DAILY 02/16/16 07/07/22 History Pantoprazole Sodium 40 mg PO DAILY 02/16/16 07/07/22 History Sertraline [Zoloft] 50 mg PO HS 02/16/16 07/11/22 History carBAMazepine [TEGretol XR] 800 mg PO Q12HR 02/16/16 07/07/22 History lamoTRIgine [LaMICtal] 100 mg PO BID 02/16/16 07/07/22 History Nitroglycerin Sl Tabs [Nitrostat] 0.4 mg SUBLINGUAL Q5M PRN #25 tab 03/23/16 07/11/22 Rx Aspirin [Adult Low Dose Aspirin EC] 81 mg PO DAILY 06/16/20 07/07/22 History Calcium Carbonate [Calcium] 600 mg PO DAILY 06/16/20 07/07/22 History Cyclobenzaprine [Flexeril] 5 mg PO BID PRN 06/16/20 07/11/22 History Losartan Potassium 100 mg PO QAM 06/16/20 07/07/22 History hydroCHLOROthiazide 25 mg PO QAM 06/16/20 07/11/22 History Acetaminophen-Codeine 300-30mg 1 tab PO DAILY PRN 03/24/22 07/11/22 History [Tylenol w/codeine #3] Rivaroxaban [Xarelto] 20 mg PO DAILY 03/24/22 07/07/22 History Metoprolol Tartrate 25 mg PO BID #180 tab 07/12/22 Rx Allergies Allergy/AdvReac Type Severity Reaction Status Date / Time No Known Allergies Allergy Verified 07/11/22 12:13 Sleep Note - Sleep Note Sleep Note: Temperature: Pulse Rate: Respiratory Rate: Blood Pressure: SpO2: Height: Weight: BMI: Neck Circumference:
== END ==
LOC: 3 N SLEEP 14:20
PROVIDERS: ATTEND Internal Medicine
DX: G47.33 Obstructive sleep apnea (adult) (pediatric) (principal); I25.10 Atherosclerotic heart disease of native coronary artery without angina pectoris; I48.91 Unspecified atrial fibrillation; I10 Essential (primary) hypertension; F17.210 Nicotine dependence, cigarettes, uncomplicated; G40.909 Epilepsy, unspecified, not intractable, without status epilepticus; Z98.890 Other specified postprocedural states; Z95.5 Presence of coronary angioplasty implant and graft; Z99.89 Dependence on other enabling machines and devices; Z79.899 Other long term (current) drug therapy; Z79.01 Long term (current) use of anticoagulants
CPT/HCPCS: 99211

== ENCOUNTER → 2023-03-24 | Outpatient (CLI) | payer MEDICARE ==
[2023-03-24 15:42] LABS: ALT 19 U/L (10-49); AST 18 U/L (14-35); Albumin 4.4 g/dL (3.8-4.9); Albumin/Globulin Ratio 1.83 Ratio (1.60-3.17); Alkaline Phosphatase 85 U/L (41-126); BUN/Creat Ratio 13.78 Ratio (12.00-20.00); Blood Urea Nitrogen 12.4 mg/dL (9.0-27.0); Calcium 9.6 mg/dL (8.7-10.3); Chloride 91 mmol/L (96-109); Chol/HDL Ratio 3.63 Ratio; Globulin 2.4 g/dL (1.6-3.3); Glucose 99 mg/dL (70-110); LDL Cholesterol,Calculated 73.3 mg/dL (0.0-131.0); Potassium 4.4 mmol/L (3.5-5.5); Sodium 129 mmol/L (135-145); Total Bilirubin 0.4 mg/dL (0.3-1.2); Total Protein 6.8 g/dL (6.2-8.2)
== END | disposition home or self-care (01) ==
LOC: LABWHC1 10:08
PROVIDERS: ATTEND Internal Medicine Interventional Cardiology
DX: E78.2 Mixed hyperlipidemia (principal)
CPT/HCPCS: 36415; 80053; 80061

== ENCOUNTER → 2023-04-07 | Outpatient (CLI) | payer MEDICARE ==
[2023-04-07 15:34] LABS: Blood Urea Nitrogen 12.2 mg/dL (9.0-27.0); Calcium 9.6 mg/dL (8.7-10.3); Carbon Dioxide 29.7 mmol/L (21.6-31.8); Chloride 95 mmol/L (96-109); Glucose 104 mg/dL (70-110); Potassium 5.1 mmol/L (3.5-5.5); Sodium 133 mmol/L (135-145)
== END | disposition home or self-care (01) ==
LOC: LABWHC1 10:54
PROVIDERS: ATTEND Internal Medicine Interventional Cardiology
DX: I10 Essential (primary) hypertension (principal)
CPT/HCPCS: 36415; 80048

== ENCOUNTER → 2023-05-05 | Outpatient (CLI) | payer MEDICARE ==
--- NOTE | 2023-05-05 18:29 | BD ---
EXAMINATION TYPE: Axial Bone Density DATE OF EXAM: 05/05/2023 CLINICAL HISTORY: 58 years old Male. ICD-10 CODE: G40.209 LOCAL REL SYMP EP Z87.310 PERS HX OF OSTEO Height: 71.5 in Weight: 229 lbs FRAX RISK QUESTIONS: Secondary Osteoporosis: Current Tobacco Use: yes RISK FACTORS HISTORY OF: Surgery to Spine(l-spine age 53) EXAM MEASUREMENTS: Bone mineral densitometry was performed using the [employer] System. Bone mineral density about the R hip (g/cm2): 1.003 Bone mineral density about the L hip (g/cm2): 0.989 T Score values are as follows: -----R Neck: -1.2 -----L Neck: -1.2 -----R Total: 0.0 -----L Total: -0.1 Z Score values are as follows: -----R Neck: -1.1 -----L Neck: -1.1 -----R Total: -0.7 -----L Total: -0.8 Bone mineral density has: Increased 1.5% since study of: 12/05/2019 Bone mineral density about the L Wrist (g/cm2): 0.753 T Score values are as follows: -----Dist. R+U: 0.7 -----Prox. R+U: -0.1 -----Radius total: 0.0 Z Score values are as follows: -----Dist. R+U: 1.1 -----Prox. R+U: 0.3 -----Radius total: 0.4 Bone mineral density has: Increased 9.9% since study of: 12/05/2019 FRAX%s: The graph provided illustrates a 5.8% chance for a major osteoporotic fx and a 1.1% chance fo r the hips probability for fx in 10 years time. IMPRESSION: Osteopenia (T Score between -2.5 and -1). There is slightly increased risk of fracture and the patient may be considered for treatment. Re-Screen 2-5 years. NOTE: T-SCORE=SD OF THE YOUNG ADULT MEAN.
== END | disposition home or self-care (01) ==
LOC: RADBDWWP 14:21
PROVIDERS: ATTEND Psychiatry & Neurology Clinical Neurophysiology
DX: M85.89 Other specified disorders of bone density and structure, multiple sites (principal); G40.209 Localization-related (focal) (partial) symptomatic epilepsy and epileptic syndromes with complex partial seizures, not intractable, without status epilepticus; Z87.310 Personal history of (healed) osteoporosis fracture
CPT/HCPCS: 77080

== ENCOUNTER → 2023-05-17 | Outpatient (CLI) | payer MEDICARE ==
--- NOTE | 2023-05-17 16:40 | P.PN ---
Subjective DATE: 10/28/2023 FOLLOW UP VISIT. Patient with obstructive sleep apnea hypopnea syndrome return to sleep center for follow-up visit. This is first visit after patient received new CPAP unit. Information from previous visit have been reviewed. Patient is using PAP equipment every night for the whole night, getting PAP supplies in time. The patient does not have significant problems with the mask, PAP unit and humidification. [place] sleepiness scale is 4, which is normal. I checked information from PAP unit. PAP unit pressure 4 to 13, average 11.8 cm H2O. Usage is 100 % for more then 4 hours, average 8 hours per night. Leak is 25.3 l/m, which is in acceptable range. Apnea Hypopnea Index is 0.5, which is normal. MEDICATIONS:1. Metoprolol 100 mg twice a day 2. Losartan/hydrochlorothiazide 3. Atorvastatin 20 mg once a day 4. Sertraline 50 mg once a day 5. Pantoprazole 40 mg once a day 6. Xarelto 20 mg once a day During physical exam: GENERAL: A pleasant patient without any distress. VITAL SIGNS: BP 140/85, HR 61, RR 16 , weight 235.0, temperature 98.2, oxygen saturation at room air 98 % . HEENT: PERRLA, EOMI.low position of soft palate, Mallapati 4 . NECK: Supple. No JVD. LUNGS: Clear to percussion and to auscultation. Good air exchange. No wheezing or rhonchi. HEART: S1, S2 regular. ABDOMEN: Soft and nontender.[] EXTREMITIES: No clubbing or cyanosis. LEVEL GLASS FORMING MACHINE OPERATOR: Awake, alert, and oriented x3. No focal deficit. Impressions: 1. Obstructive sleep apnea-hypopnea syndrome. Patient demonstrated great compliance with treatment, benefiting from treatment. 2. History of atrial fibrillation, status post cardiac ablation. 3. Coronary artery disease, status post stent insertion. 4. History of epilepsy, status post brain surgery for epilepsy, no recent episodes. 5. Hypertension. 6. Smokier for 30 pack years Plan: 1. Continue using PAP equipment every night for the whole night. 2. To change air filter at least 1-2 times per month. 3. PAP unit should stay lower then position of the head. 4. Advised patient to remove all remaining water from humidifier canister daily and make it dry after each usage. Refill canister with fresh distilled water before each usage. 5. Sleep hygiene with regular time in bed for at least 8 hours. 6. Precautions related to driving. No driving if feel any sleepiness. 7. I will maintain prescription for PAP supplies including mask, tube, filters. 8. Follow up visit in 6 months or earlier if patient has any problems. 9. Watching weight. Thank you very much for allowing me to participate in the management of your patient. Junito Arechiga MD, PhD, FAASM. Diplomat of [place] [employer], Sleep Medicine Board by [place] [employer] Lead Applications Developer of [facility] [place]
== END ==
LOC: 3 N SLEEP 15:32
PROVIDERS: ATTEND Internal Medicine
DX: G47.33 Obstructive sleep apnea (adult) (pediatric) (principal); I25.10 Atherosclerotic heart disease of native coronary artery without angina pectoris; I48.91 Unspecified atrial fibrillation; I10 Essential (primary) hypertension; F17.210 Nicotine dependence, cigarettes, uncomplicated; Z86.69 Personal history of other diseases of the nervous system and sense organs; Z99.89 Dependence on other enabling machines and devices; Z79.01 Long term (current) use of anticoagulants; Z79.899 Other long term (current) drug therapy; Z95.5 Presence of coronary angioplasty implant and graft; Z98.890 Other specified postprocedural states; Z79.82 Long term (current) use of aspirin
CPT/HCPCS: 99212

== ENCOUNTER → 2023-08-29 | Outpatient (CLI) | payer MEDICARE ==
--- NOTE | 2023-09-05 11:22 | MR ---
EXAMINATION TYPE: MR brain wo/w con DATE OF EXAM: 08/29/2023 COMPARISON: HISTORY: Abnormal EEG, seizure CONTRAST: Performed utilizing 10 mL intravenous Gadavist gadolinium contrast. TECHNIQUE: Multiplanar, multiecho imaging on a 3.0 [place] magnet is performed through the brain. Stud y is performed within 24 hours of arrival to the hospital. The craniovertebral junction is normal. The pituitary is normal. Diffusion-weighted imaging is performed. No abnormal hyperintensity is present to suggest an acute i ntracranial infarct or acute ischemic change. There are numerous small periventricular and deep white matter hyperintensities on T2 weighted sequen lauren compatible with microvascular ischemic change. There is a large fluidlike collection along the inferior aspect of the left middle cranial fossa. Whi te matter changes extend through the right temporal lobe. Correlate for encephalomalacia Ventricles and sulci are slightly prominent for the patient age. No abnormal enhancement is evident IMPRESSION: 1. 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 2. Moderately extensive periventricular and deep white matter chronic appearing white matter ischemic changes
== END | disposition home or self-care (01) ==
LOC: RADMRIMAIN 13:07
PROVIDERS: ATTEND Psychiatry & Neurology Neurology
DX: G93.89 Other specified disorders of brain (principal); I67.82 Cerebral ischemia; G40.209 Localization-related (focal) (partial) symptomatic epilepsy and epileptic syndromes with complex partial seizures, not intractable, without status epilepticus
CPT/HCPCS: 70553; A9585

== ENCOUNTER → 2023-12-21 | Outpatient (CLI) | payer MEDICARE ==
[2023-12-21 16:08] VITALS: BP 156/71; PULSE 67; RESP 16; TEMP 98.2
--- NOTE | 2023-12-21 16:37 | P.PROGSL ---
Subjective DATE: 12/21/2023 FOLLOW UP VISIT. Patient with obstructive sleep apnea hypopnea syndrome return to sleep center for follow-up visit. Information from previous visit have been reviewed. Patient is using PAP equipment every night for the whole night, getting PAP supplies in time. The patient does not have significant problems with the mask, PAP unit and humidification. [place] sleepiness scale is 6, which is normal. I checked information from PAP unit. PAP unit pressure 4-13, average 12.1 cm H2O. Usage is 100% for more then 4 hours, average 8 hours per night. Leak is slightly increased to 28.8 l/m. Apnea Hypopnea Index is 0.8, which is normal. MEDICATIONS have been reviewed, please see below. During physical exam: GENERAL: A pleasant patient without any distress. VITAL SIGNS: Please see below, weight is 228.0 lbs. HEENT: PERRLA, EOMI.low position of soft palate, Mallapati 4 . NECK: Supple. No JVD. LUNGS: Clear to percussion and to auscultation. Good air exchange. No wheezing or rhonchi. HEART: S1, S2 regular. ABDOMEN: Soft and nontender.[] EXTREMITIES: No clubbing or cyanosis. INSOLVENCY PRACTITIONER: Awake, alert, and oriented x3. No focal deficit. Impressions: 1. Obstructive sleep apnea-hypopnea syndrome. Patient demonstrated great compliance with treatment, benefiting from treatment. 2. Coronary artery disease, status post stent insertion. 3. History of atrial fibrillation, status post cardiac ablation. 4. History of epilepsy, status post brain surgery for epilepsy, no recent episodes. 5. Hypertension. 6. Smoker for about 30 pack years, continue to smoke. Plan: 1. Continue using PAP equipment every night for the whole night. 2. Sleep hygiene with regular time in bed for at least 7.5-8 hours 3. PAP unit should stay lower then position of the head. 4. Advised patient to remove all remaining water from humidifier canister daily and make it dry after each usage. Refill canister with fresh distilled water before each usage. 5. Watching weight. 6. Precautions related to driving. No driving if feel any sleepiness. 7. I will maintain prescription for PAP supplies including mask, tube, filters. 8. Follow up visit in 6 months or earlier if patient has any problems. 8. Smoking cessation program. Thank you very much for allowing me to participate in the management of your patient. Junito Arechiga MD, PhD, FAASM. Diplomat of [place] [employer], Sleep Medicine Board by [place] [employer] Customer Development Representative of [facility] [place] Objective - Vital Signs Vital Signs: Vital Signs Temp 98.2 F 12/21/23 16:07 Pulse 67 12/21/23 16:07 Resp 16 12/21/23 16:07 BP 156/71 12/21/23 16:07 Pulse Ox 98 12/21/23 16:07 FiO2 Intake & Output 12/20/23 12/21/23 12/21/23 18:59 06:59 18:59 Weight 103.419 kg Home Medications: Home Medications Medication Instructions Recorded Confirmed Type Cetirizine HCl [Zyrtec] 10 mg PO HS 02/16/16 12/21/23 History Cholecalciferol [Vitamin D3 (25 1,000 unit PO DAILY 02/16/16 12/21/23 History Mcg = 1000 Iu)] Niacin 500 mg PO DAILY 02/16/16 12/21/23 History Pantoprazole Sodium 40 mg PO DAILY 02/16/16 12/21/23 History Sertraline [Zoloft] 50 mg PO HS 02/16/16 12/21/23 History carBAMazepine [TEGretol XR] 800 mg PO Q12HR 02/16/16 12/21/23 History lamoTRIgine [LaMICtal] 100 mg PO BID 02/16/16 12/21/23 History Nitroglycerin Sl Tabs [Nitrostat] 0.4 mg SUBLINGUAL Q5M PRN #25 tab 03/23/16 12/21/23 Rx Aspirin [Adult Low Dose Aspirin EC] 81 mg PO DAILY 06/16/20 12/21/23 History Calcium Carbonate [Calcium] 600 mg PO DAILY 06/16/20 12/21/23 History Cyclobenzaprine [Flexeril] 5 mg PO BID PRN 06/16/20 12/21/23 History Losartan Potassium 100 mg PO QAM 06/16/20 12/21/23 History hydroCHLOROthiazide 25 mg PO QAM 06/16/20 12/21/23 History Acetaminophen-Codeine 300-30mg 1 tab PO DAILY PRN 03/24/22 12/21/23 History [Tylenol w/codeine #3] Rivaroxaban [Xarelto] 20 mg PO DAILY 03/24/22 12/21/23 History Metoprolol Tartrate 25 mg PO BID #180 tab 07/12/22 12/21/23 Rx Atorvastatin Calcium 20 mg PO DAILY 12/21/23 12/21/23 History
== END ==
LOC: 3 N SLEEP 15:42
PROVIDERS: ATTEND Internal Medicine
CPT/HCPCS: 99212

== ENCOUNTER → 2024-02-13 | Outpatient (CLI) | payer MEDICARE ==
[2024-02-13 19:10] LABS: ALT 18 U/L (10-49); AST 19 U/L (14-35); Albumin 4.4 g/dL (3.8-4.9); Albumin/Globulin Ratio 1.69 Ratio (1.60-3.17); Alkaline Phosphatase 84 U/L (41-126); BUN/Creat Ratio 16.22 Ratio (12.00-20.00); Blood Urea Nitrogen 14.6 mg/dL (9.0-27.0); Calcium 9.7 mg/dL (8.7-10.3); Carbon Dioxide 27.2 mmol/L (21.6-31.8); Chloride 95 mmol/L (96-109); Chol/HDL Ratio 3.85 Ratio; Globulin 2.6 g/dL (1.6-3.3); Glucose 91 mg/dL (70-110); Potassium 4.2 mmol/L (3.5-5.5); Sodium 132 mmol/L (135-145); Total Bilirubin 0.4 mg/dL (0.3-1.2)
== END | disposition home or self-care (01) ==
LOC: LABWHC1 13:37
PROVIDERS: ATTEND Internal Medicine Interventional Cardiology
DX: E78.2 Mixed hyperlipidemia (principal)
CPT/HCPCS: 36415; 80053; 80061

== ENCOUNTER → 2024-08-29 | Outpatient (CLI) | payer MEDICARE ==
[2024-08-29 16:22] VITALS: BP 128/77; PULSE 62; RESP 12; TEMP 98.2
--- NOTE | 2024-08-29 16:35 | P.PROGSL ---
Subjective DATE: 08/29/2024 FOLLOW UP VISIT. Patient with obstructive sleep apnea hypopnea syndrome return to sleep center for follow-up visit. Information from previous visit have been reviewed. Patient is using PAP equipment every night for the whole night, getting PAP supplies in time. The patient does not have significant problems with the mask, PAP unit and humidification. [place] sleepiness scale is 3, which is perfect. I checked information from PAP unit. PAP unit pressure 4-13, average 11.9 cm H2O. Usage is 100% for more then 4 hours, average 7.8 hours per night. Leak is 24 l/m, which is in acceptable range. Apnea Hypopnea Index is 0.7, which is normal. MEDICATIONS have been reviewed, please see below. During physical exam: GENERAL: A pleasant patient without any distress. VITAL SIGNS: Please see below, weight is 230 lbs. HEENT: PERRLA, EOMI.low position of soft palate, Mallapati 4 . NECK: Supple. No JVD. LUNGS: Clear to percussion and to auscultation. Good air exchange. No wheezing or rhonchi. HEART: S1, S2 regular. ABDOMEN: Soft and nontender.[] EXTREMITIES: No clubbing or cyanosis. SPECIMEN ACCESSIONER: Awake, alert, and oriented x3. No focal deficit. Impressions: 1. Obstructive sleep apnea-hypopnea syndrome. Patient demonstrated great compliance with treatment, benefiting from treatment. 2. Coronary artery disease, status post stent insertion. 3. History of atrial fibrillation, status post cardiac ablation. 4. History of epilepsy, status post brain surgery for epilepsy, no episodes of epilepsy since surgery. 5. Hypertension. 6. Smoker for more than 30 pack years, continue to smoke. Plan: 1. Continue using PAP equipment every night for the whole night. 2. Sleep hygiene with regular time in bed for at least 7.5-8 hours 3. PAP unit should stay lower then position of the head. 4. Advised patient to remove all remaining water from humidifier canister daily and make it dry after each usage. Refill canister with fresh distilled water before each usage. 5. Watching weight. 6. Precautions related to driving. No driving if feel any sleepiness. 7. I will maintain prescription for PAP supplies including mask, tube, filters. 8. Follow up visit in 8 months or earlier if patient has any problems. 9. Smoking cessation. Thank you very much for allowing me to participate in the management of your patient. Junito Arechiga MD, PhD, FAASM. Diplomat of [place] [employer], Sleep Medicine Board by [place] [employer] Infantry Operations Specialist of [facility] [place] Objective - Vital Signs Vital Signs: Vital Signs Temp 98.2 F 08/29/24 16:21 Pulse 62 08/29/24 16:21 Resp 12 08/29/24 16:21 BP 128/77 08/29/24 16:21 Pulse Ox 98 08/29/24 16:21 FiO2 Intake & Output 08/28/24 08/29/24 08/29/24 18:59 06:59 18:59 Weight 104.326 kg Home Medications: Home Medications Medication Instructions Recorded Confirmed Type Cetirizine HCl [Zyrtec] 10 mg PO HS 02/16/16 12/21/23 History Cholecalciferol [Vitamin D3 (25 1,000 unit PO DAILY 02/16/16 12/21/23 History Mcg = 1000 Iu)] Niacin 500 mg PO DAILY 02/16/16 12/21/23 History Pantoprazole Sodium 40 mg PO DAILY 02/16/16 12/21/23 History Sertraline [Zoloft] 50 mg PO HS 02/16/16 12/21/23 History carBAMazepine [TEGretol XR] 800 mg PO Q12HR 02/16/16 12/21/23 History lamoTRIgine [LaMICtal] 100 mg PO BID 02/16/16 12/21/23 History Nitroglycerin Sl Tabs [Nitrostat] 0.4 mg SUBLINGUAL Q5M PRN #25 tab 03/23/16 12/21/23 Rx Aspirin [Adult Low Dose Aspirin EC] 81 mg PO DAILY 06/16/20 12/21/23 History Calcium Carbonate [Calcium] 600 mg PO DAILY 06/16/20 12/21/23 History Cyclobenzaprine [Flexeril] 5 mg PO BID PRN 06/16/20 12/21/23 History Losartan Potassium 100 mg PO QAM 06/16/20 12/21/23 History hydroCHLOROthiazide 25 mg PO QAM 06/16/20 12/21/23 History Acetaminophen-Codeine 300-30mg 1 tab PO DAILY PRN 03/24/22 12/21/23 History [Tylenol w/codeine #3] Rivaroxaban [Xarelto] 20 mg PO DAILY 03/24/22 12/21/23 History Metoprolol Tartrate 25 mg PO BID #180 tab 07/12/22 12/21/23 Rx Atorvastatin Calcium 20 mg PO DAILY 12/21/23 12/21/23 History
== END ==
LOC: 3 N SLEEP 15:59
PROVIDERS: ATTEND Internal Medicine
DX: G47.33 Obstructive sleep apnea (adult) (pediatric) (principal); I25.10 Atherosclerotic heart disease of native coronary artery without angina pectoris; G40.909 Epilepsy, unspecified, not intractable, without status epilepticus; I10 Essential (primary) hypertension; I48.91 Unspecified atrial fibrillation; F17.210 Nicotine dependence, cigarettes, uncomplicated; Z98.890 Other specified postprocedural states; Z95.5 Presence of coronary angioplasty implant and graft; Z99.89 Dependence on other enabling machines and devices
CPT/HCPCS: 99212